=== PATIENT | male | born 1985 | race Caucasian/White ===

== ENCOUNTER 2023-12-08 11:06 | Emergency (ER) | payer SELFPAY ==
[~2023-12-08] VITALS: Ht 165.1 cm; Wt 72.0 kg
[2023-12-08 11:11] VITALS: BP 137/92; PULSE 73; RESP 20; TEMP 97.7; O2SAT 100
[2023-12-08] MEDS ORDERED: IBUP-2029 MT (14:07)
[2023-12-08] MEDS ORDERED: CYCL10TA21 MT (14:07)
== END 2023-12-08 14:25 | disposition home or self-care (01) ==
LOC: ER 11:06
DX: M54.9 Dorsalgia, unspecified (principal); Z98.890 Other specified postprocedural states
CPT/HCPCS: 71100; 99283

== ENCOUNTER 2024-05-04 15:38 | Emergency (ER) | payer SELFPAY ==
[~2024-05-04] VITALS: Ht 167.6 cm; Wt 60.0 kg
[~2024-05-04 15:38] MED LIST: CYCL10TA21 MT; IBUP-2029 MT
[2024-05-04 15:56] VITALS: O2SAT 100
[2024-05-04] MEDS ORDERED: TETANUS, DIPHTHERIA, PERTUSSIS VAC/PF 0.5ML (>10YR OLD) IM ONE (17:15)
[2024-05-04 18:25] LABS: BASOPHILS % 0.4 % (0.0-2.0); EOSINOPHILS % 2.3 % (0.0-5.0); HEMATOCRIT. 45.9 % (42.0-52.0); LYMPHOCYTES % 13.9 % (20.0-50.0); MEAN CORPUSCULAR HEMOGLOBIN 30.2 pg (28.0-32.0); MEAN CORPUSCULAR HGB CONC 32.7 g/dL (31.0-37.0); MEAN CORPUSCULAR VOLUME 92.1 fL (80.0-94.0); MONOCYTES % 10.3 % (2.0-8.0); NEUTROPHILS % 73.1 % (40.0-76.0); PLATELET 212 x1000/uL (130-400); RED BLOOD CELL COUNT 4.98 mill/uL (4.7-6.1); RED CELL DISTRIBUTION WIDTH 13.9 % (11.6-14.6); WHITE BLOOD COUNT 12.2 x1000/uL (4.5-11.0)
[2024-05-04 18:33] LABS: CHLORIDE 107 mEq/L (98-107); POTASSIUM 4.5 mEq/L (3.5-5.1); SODIUM 140 mEq/L (136-145)
[2024-05-04 18:34] LABS: CARBON DIOXIDE 30 mEq/L (21-32)
[2024-05-04 18:39] LABS: CREATININE 1.1 mg/dL (0.6-1.3); GLUCOSE 90 mg/dL (70-105); UREA NITROGEN BLOOD 13 mg/dL (9-23)
[2024-05-04] MEDS: LIDOCAINE HCL/EPINEPHRINE 1%-EPI 1:100,000 20ML VIAL INFIL ONE (18:51)
[2024-05-04] MEDS: HYDROCODONE/ACETAMINOPHEN 5/325MG TABLET PO ONE (18:51)
[2024-05-04] MEDS: BACITRACIN ZINC OINT UDPKT TOP ONE (18:51)
[2024-05-04] MEDS: TETANUS, DIPHTHERIA, PERTUSSIS VAC/PF 0.5ML (>10YR OLD) IM ONE (19:23)
[2024-05-04] MEDS ORDERED: IBUP-2029 MT (19:28)
[2024-05-04] MEDS ORDERED: CEPH500C2 PO (19:28)
[2024-05-04 21:01] VITALS: BP 133/86; PULSE 78; RESP 18; TEMP 36.78072; O2SAT 99
== END 2024-05-04 21:03 | disposition home or self-care (01) ==
LOC: ER 15:38
DX: S61.511A Laceration without foreign body of right wrist, initial encounter (principal); W45.8XXA Other foreign body or object entering through skin, initial encounter; Y93.89 Activity, other specified; Y92.89 Other specified places as the place of occurrence of the external cause; Y99.8 Other external cause status
CPT/HCPCS: 80048; 85025; 36415; 73110; 90715; 12002; 90471; 99284; J3490; Z7610 ×2